=== PATIENT | female | born 1950 | race Caucasian/White ===

== ENCOUNTER 2020-08-12 06:29 | Observation (INO) ==
--- NOTE | 2020-07-17 07:56 | ANES ---
Anesthesia Pre Procedure Eval HOME MEDICATIONS carbidopa ER 36.25 mg-levodopa 145 mg capsule,extended release 3 cap PO QID cap 05/29/20 [Last Taken Unknown] cholecalciferol (vitamin D3) 125 mcg (5,000 unit) capsule 5,000 unit PO DAILY cap 05/29/20 [Last Taken Unknown] lactobacillus combination no.8 3 billion cell capsule 3,000 mmu cells PO DAILY 05/29/20 [Last Taken Unknown] polyethylene glycol 3350 17 gram/dose oral powder 17 g PO DAILY 05/29/20 [Last Taken Unknown] Allergies/Adverse Reactions: Allergies Allergy/AdvReac Type Severity Reaction Status Date / Time clonazepam AdvReac Intermediate drowsy Verified 07/11/20 08:57 codeine AdvReac Intermediate Nausea Verified 07/11/20 08:57 ibuprofen AdvReac Intermediate nausea/vomi Verified 07/11/20 08:57 ting metoclopramide AdvReac Intermediate drowsy Verified 07/11/20 08:57 - Planned Procedure Planned Procedure: Left Arthroplasty Total Knee, Revision Medication List Reviewed:: Yes Allergies Verified: Yes Medical History (Last Reviewed 07/11/20 @ 08:56 by Estrellita Valdovinos LPN) Parkinson disease Onset Date: Unknown Surgical History (Last Reviewed 07/11/20 @ 08:56 by Estrellita Valdovinos LPN) H/O dilation and curettage Onset Date: ~07/2019 H/O partial mastectomy Onset Date: ~2015 left breast H/O: hysterectomy Onset Date: ~07/2019 History of back surgery Onset Date: ~1986 History of partial knee replacement Onset Date: ~03/29/12 left knee: [facility], right knee 2012 @ [facility] Family History (Last Reviewed 07/11/20 @ 08:56 by Estrellita Valdovinos LPN) Father Diabetes Parkinson disease Alcohol abuse Mother Colon cancer - Family Anesthesia History Family History:: no untoward family reactions to anesthesia, no familial bleeding tendencies, no family history of clotting disorders, no family history of premature - Respiratory Smoking Status: Never smoker Discussed smoking cessation including day of surgery: No Sleep Apnea currently treated: No Sleep Apnea by current assessment: No Discussed Risks/Treatment of RODY: No - Cardiovascular Tolerate Activity: Fair - Anesthesia Assessment and Plan ASA Class: PS, III Anesthesia Type Plan: Block - Left ultrasound guided adductor canal nerve block for postop analgesia, Spinal
[~2020-08-12 06:29] MED LIST: MORPHINE SULFATE 15 MG TABLET.SA PO PRN; ROPIVACAINE/CLONIDIN/KETOROLAC 50 ML SYRINGE IJ PRN; TRANEXAMIC ACID 1,000 MG in NORMAL SALINE 100 ML IV PRN; ceFAZolin SODIUM 1 GM VIAL IV PRN
[2020-08-12] MEDS ORDERED: LIDOCAINE HCL 20 ML VIAL ONE (06:52)
[2020-08-12] MEDS ORDERED: NORMAL SALINE 20 ML VIAL ONE (06:52)
[2020-08-12] MEDS ORDERED: BUPIVACAINE HCL/EPINEPHRINE 50 ML VIAL IJ ONE (06:52)
[2020-08-12] MEDS ORDERED: PROPOFOL VIAL IV ONE (06:52)
[2020-08-12] MEDS ORDERED: MIDAZOLAM HCL/PF 5 MG/ML VIAL ONE (06:52)
[2020-08-12] MEDS ORDERED: BUPIVACAINE HCL/PF 10 ML VIAL ONE (06:52)
[2020-08-12] MEDS: RINGER'S SOLUTION,LACTATED 1,000 ML IV PRN ×2 (07:10→08:40)
[2020-08-12] MEDS ORDERED: ROPIVACAINE/CLONIDIN/KETOROLAC 50 ML SYRINGE IJ ONE (07:15)
[2020-08-12] MEDS ORDERED: ceFAZolin SODIUM 1 GM VIAL ONE (07:15)
[2020-08-12] MEDS ORDERED: DEXTROSE 5%-LACTATED RINGERS 1,000 ML IV PRN (09:52)
[2020-08-12] MEDS ORDERED: diphenhydrAMINE HCL 50 MG/ML VIAL IV PRN (09:52)
[2020-08-12] MEDS ORDERED: ZOLPIDEM TARTRATE 5 MG TABLET PO PRN (09:52)
[2020-08-12] MEDS ORDERED: ACETAMINOPHEN 500 MG TABLET PO PRN (09:52)
[2020-08-12] MEDS ORDERED: MAG HYDROX/ALUMINUM HYD/SIMETH 30 ML UDC PO PRN (09:52)
[2020-08-12] MEDS ORDERED: MAGNESIUM HYDROXIDE 30 ML UDC PO PRN (09:52)
--- NOTE | 2020-08-12 09:52 | OR ---
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 Procedure: Revision left total knee arthroplasty. Revision of scar left knee 15 cm Surgeon: Caden Handy M.D. Buttermaker: Kuldeep Marie PA-C (provided and essential set of skilled, educated hands that assisted with transfer, positioning, prepping, draping, manipulation, retraction, placement of jigs, injection, insertion of implants, irrigation, closure wounds, and dressings all of which could not be performed by the available surgical crew) Anesthesia: Spinal with regional block and local periarticular joint injection. Complications: None Specimens: Bone. Implants for disposal, tissue to pathology for acute inflammation, culture x1 Estimated blood loss: Minimal. Tourniquet time: 90 Minutes at 300 millimeters of mercury. Retained implants: Depuy Attune size 3 left lugged cemented posterior stabilized femoral component. Size 3 fixed-bearing cemented tibial platform. 3 by 10 millimeter posterior stabilized cross-linked tibial insert. 38 millimeter medialized patella button. Indications: Mrs. Vivar is a 70-year-old female who in the past underwent a left knee medial compartment uniarthroplasty. She had progression of her arthrosis and pain. This patient was followed in my clinic for period of time with significant complaints of left knee pain consistent with arthritic changes. She had failed conservative measures including, but not limited to, activity modification, passage of time, medications, and other conservative measures. Patient wished to proceed with surgical treatment. The risks, benefits, and alternatives were discussed in clinic. The risks of , blood clots, bleeding, infection, nerve/tendon blood vessel/ injury, malposition of components, intraoperative fracture, postoperative limited range of motion, persistent pain, failure of components, and need for additional procedures. Patient wished to proceed consent was obtained after answering all questions. Procedure: After marking the correct extremity on the floor, the patient was taken to the operating room. A timeout was performed. IV antibiotics consisting of Ancef were administered prior to the procedure. A regional followed by spinal anesthetic was induced by anesthesia, per my request, on the operative table with all bony prominences well-padded. Orosco catheter was placed, and a bump was placed under the operative side buttock. SCDs and PERCY hose were utilized on the nonoperative leg. A well-padded tourniquet was applied to the operative thigh. The operative leg was then pre-scrubbed with alcohol, prepped, and draped in a standard sterile fashion. After exsanguinating the extremity with an Esmarch bandage, the tourniquet was inflated. After marking out the prior anterior knee for standard incision centered over the patella, the skin was incised and the prior scar was excised over a distance of 15 cm and dissected down to the joint retinaculum. There were no retained nonabsorbable sutures encountered. The joint retinaculum was marked out as well as the horizontal axis of the patella, and a standard medial parapatellar arthrotomy was then made. The most proximal aspect of the quadriceps tendon and the patella tendon insertion were protected from release. A partial synovectomy was performed as well as a resection of the infrapatellar fat pad. The distal femoral fat pad proximal to the trochlea was also resected using cautery. The soft tissues were elevated off the medial aspect of the proximal tibia using a [place] elevator ensuring that we did not transect the medial collateral ligament. The prior unicompartment knee implants were in place with no sign of failure. Using osteotomes the tibial insert was removed. Her range of motion was approximately 0 degrees to 130 degrees of flexion. There were signs of advanced arthrosis in the patellofemoral and lateral joint spaces. There were large marginal osteophytes which were removed with a rongeur. The knee was hyperflexed and the patella was tucked laterally. Protecting the surrounding soft tissues with Homans, an entry drill was placed down the femoral canal using Whitesides line for guidance into the entry point. This was done with the prior implants in place. The intramedullary femoral alignment stella was utilized in order to provide intramedullary alignment. We then used the osteotomes in order to remove the femoral and tibial components which came out with relative ease and no excessive loss of bone. There showed no gross signs of infection. Tissue from the knee was then sent to pathology for acute inflammation which returned with less than 2 neutrophils per high-powered field. Next, we cut the distal femur in 5 degrees of valgus resecting 10 millimeters of bone. Next the distal femur was sized to a size 3. A posterior referencing guide was utilized to place the distal femoral cutting block in 3 degrees of external rotation. This was pinned into place. The rotation was confirmed both visually and based on anatomic landmarks. The 4 in 1 cutting jig of the appropriate size was utilized in order to make all bony cuts. The ierne wing was used to ensure no notching. Retractors were utilized in order to protect surrounding soft tissues. This cut did not result in any excessive notching. We then cut the box centered over the distal femur. This allowed for resection of the anterior and posterior cruciate ligaments. I then turned my attention to the preparation of the tibia. Using an extra medullary tibial alignment stella, 1 millimeters of bone was resected off the previous implant surface for a cleanup cut. This was made perpendicular to the mechanical axis of the joint with the alignment stella centered over the ankle mortise. The alignment stella was checked and was noted to be parallel to the mechanical axis, centered over the medial one third of the tibial tubercle, paralleling the anterior surface of the tibia. We then turned our attention to the remaining meniscus and soft tissues. These were removed while protecting the surrounding ligaments and soft tissues. The marginal osteophytes off the anterior, posterior, medial, lateral aspects of the femur and tibia were removed. The tibia was sized out to a size 3. Next the tibia was drilled and punched in an externally rotated position. Next the trial femur and a series of tibial inserts were utilized in order to allow for full extension and maximal flexion. It was found that a 10 millimeter insert gave the best range of motion and stability at multiple flexion points as well as at full extension there was less than 2 mm of gapping both medially and laterally. There is minimal anterior translation with the knee at 90 degrees of flexion and no signs of being able to dislocate the knee. The patella was then prepared. The initial thickness was 21 millimeters. This was reamed down to 12 millimeters parallel to the anterior surface of the patella. It was sized out to a size 38 medialized patella button. This was then drilled and trialed. Without any medial restraint the patella tracked appropriately and did not sublux or dislocate. At this point, it was felt these were the appropriate sized implants, and all trials were removed. The standard periarticular joint injection consisting of ropivacaine, Toradol, and epinephrine were injected into the periarticular joint tissues. The bony surfaces were thoroughly irrigated with a pulsatile-suction saline irrigation device. A bone plug from the prior resected anterior chamfer cut was placed into the drill hole at the distal femur. The bony surfaces were then dried in preparation for placement of the implants. The cement was vacuum mixed per the cutter and paster press clippings's instructions. The cement was placed on the dry bony surfaces and posterior aspect of the implants. The implants were impacted into place, removing all extruded cement. At this point anesthesia administered tranexamic acid per protocol intravenously. The knee was placed in extension with axial loading with the trial insert while the cement cured. Once the cement cured, all remaining extruded cement was removed. The knee was placed through a range of motion with the trial insert to ensure appropriate range of motion and stability. Final range of motion was approximately 0 to 130 degrees. The knee was again thoroughly irrigated with pulsatile saline lavage. The final polyethylene insert was then impacted into place ensuring no retained soft tissues. Cultures were obtained in the knee at this time. A medium Hemovac drain was placed exiting superior laterally. The knee was then placed over a triangle and the arthrotomy was closed with interrupted #1 Vicryl after thoroughly irrigating the joint. The deep and subcutaneous tissues were closed with interrupted 0 and 3-0 Vicryl respectively. Skin was closed with a running subcutaneous 3-0 Monocryl and Prineo Dermabond dressing. 4 x 4's, Sof-Rol, and a full leg Amarjit wrap were applied. All sponge, needle, blade, and instrument counts were correct prior to closing the wounds. Postoperative condition: The patient was awoken and transferred to the postanesthesia care unit in stable condition. Plan is to be admitted to the inpatient medical/surgical floor postoperatively for 24 hours of IV antibiotics, physical therapy, occupational therapy, and medical comanagement. Patient will be weightbearing as tolerated with range of motion as tolerated. DVT prophy laxis will be with SCDs, PERCY hose, and pharmacological anticoagulation. Anticipated hospital stay is approximately 1-3 days.
--- NOTE | 2020-08-12 10:25 | ANES ---
Post Anesthesia Discharge - Transfer of Care Transfer of Care handoff given to nurse: Yes - Discharge from PACU Discharge from PACU when meets criteria: Yes
--- NOTE | 2020-08-12 10:28 | ANES ---
Anesthesia Procedure Note Procedure Note: ANESTHESIA PROCEDURE NOTE Date of procedure: 08/12/2020. Time of procedure: 12 08. Performed by: James Livingston CRNA Clearing Hand: Tess Luna RN . Preprocedure diagnosis: Left knee DJD. Post procedure diagnosis: Same. Procedure: Ultrasound-guided left adductor canal block Indications: Postoperative analgesia. Findings: Patient brought to operating room room #4, sedated, and given a spinal anesthetic. The patient's left inner thigh was prepped with ChloraPrep. Ultrasound utilized to identify the saphenous nerve in the left adductor canal. A 20-gauge 4 inch regional block needle was advanced under ultrasound guidance till tip of needle was placed just proximally to the saphenous nerve. 23 mL of 0.25% Marcaine with epinephrine 1-200,000 was injected with adequate spread of local anesthesia noted a around the nerve. Regional block needle was removed intact. EBL: Minimal. Fluids: N/A. Specimen: N/A. Post procedure condition: The patient tolerated the procedure well. No complications were noted. Thank you for this consultation James Livingston CRNA
--- NOTE | 2020-08-12 11:09 | ANES ---
Post Anesthesia Assessment - Vital Signs Vitals: Last Vital Signs Temp 36.7 C 08/12/20 10:35 Pulse 81 08/12/20 10:35 Resp 16 08/12/20 10:35 BP 98/49 08/12/20 10:35 Pulse Ox 100 08/12/20 10:35 Airway Patency: Normal - Mental Status Level Of Consciousness: Awake - Pain Level Pain Score: 0 - N/V Assessment Nausea/Vomiting Presence: None Dehydration:: No
[2020-08-12] MEDS: ceFAZolin SODIUM 1 GM in DEXTROSE 5 % IN WATER 100 ML IV SCH ×6 (11:34→23:36)
[2020-08-12] MEDS: KETOROLAC TROMETHAMINE 15 MG/ML VIAL IV SCH ×3 (11:37→23:30)
[2020-08-12] MEDS: Carbidopa/Levodopa [Rytary Er 36.25 Mg-145 Mg Cap] PO SCH ×3 (12:50→21:17)
[2020-08-12] MEDS: oxyCODONE HCL/ACETAMINOPHEN 1 TAB TABLET PO PRN (14:52)
[2020-08-12] MEDS: ONDANSETRON HCL/PF 2 MG/ML VIAL IV PRN (17:02)
[2020-08-12] MEDS ORDERED: SENNOSIDES/DOCUSATE SODIUM 1 TAB TABLET PO SCH (21:00)
[2020-08-13] MEDS: KETOROLAC TROMETHAMINE 15 MG/ML VIAL IV SCH ×2 (05:41→10:17)
[2020-08-13] MEDS: oxyCODONE HCL/ACETAMINOPHEN 1 TAB TABLET PO PRN ×3 (05:41→15:25)
[2020-08-13 06:18] LABS: Hematocrit 31.6 % (37.0-47.0); Hemoglobin 10.4 gm/dL (12.5-16.0); Mean Cell Volume 96.9 fl (78-100); Mean Corpuscular Hemoglobin 31.9 pg (27-31); Mean Corpuscular Hgb Conc 32.9 g/dl (32-36); Mean Platelet Volume 10.3 fl (8-12.5); Platelet Count 97 K/mm3 (150-450); Red Blood Count 3.26 M/mm3 (4.2-5.4); Red Cell Distribution Width 12.2 % (11.5-14.0); White Blood Count 5.3 K/mm3 (4.0-10.5)
[2020-08-13 06:27] LABS: Anion Gap 8.6 mmol/L (6.8-13.8); BUN/Creatinine Ratio 26.1 (9.0-21.6); Calcium * 8.3 mg/dL (7.9-10.9); Estimated Creat Clear 85.9; Potassium 3.6 mmol/L (3.4-4.6)
[2020-08-13] MEDS: Carbidopa/Levodopa [Rytary Er 36.25 Mg-145 Mg Cap] PO SCH ×2 (08:01→12:43)
[2020-08-13] MEDS ORDERED: ENOXAPARIN SODIUM 40 MG/0.4 ML SYRG SC SCH (08:52)
[2020-08-13] MEDS ORDERED: POLYETHYLENE GLYCOL 3350 119 GM BTL PO SCH (09:00)
[2020-08-13] MEDS ORDERED: CHOLECALCIFEROL 5,000 UNIT TABLET PO SCH (09:00)
[2020-08-13] MEDS ORDERED: POLYETHYLENE GLYCOL 3350 17 GM PACKET PO SCH (09:00)
[2020-08-13] MEDS ORDERED: LACTOBACILLUS ACIDOPHILUS 1 EACH CAPSULE PO SCH (09:00)
[2020-08-13] MEDS: ONDANSETRON HCL/PF 2 MG/ML VIAL IV PRN (12:40)
--- NOTE | 2020-08-13 16:14 | DS ---
(1) Status post revision of total replacement of left knee Problem: Acute (2) Parkinson disease Problem: Chronic Date of Discharge:: 08/13/20 Hospital Course: Mrs. Vivar was admitted to the floor after undergoing revision left total knee arthroplasty. Tolerated this well. Was admitted to the floor postoperatively for 24 hours of IV antibiotics, pain control, medical comanagement, and occupational and physical therapy. OT and PT were consulted to assist with activities of daily living and ambulation. Was made weightbearing as tolerated with range of motion as tolerated. Pain was initially controlled with IV regimen. This was transitioned to oral once tolerating a by mouth intake. Was resumed on home diet and medications. A Orosco catheter was inserted in the operating room which was discontinued by postoperative day 1. A drain was pl aced intraoperatively into the knee which was discontinued on postoperative day 1. Lovenox, SCDs, and PERCY hose were utilized for DVT prophylaxis. Vital signs remained stable to the hospital course. Labs were obtained which showed a final hemoglobin of 10.4 grams. BMP was reviewed and was stable. Physical examination throughout the hospital course showed an extremity that had sensation that was intact to light touch, palpable pulses, a benign wound, motor intact to the toes, ankle, and knee. Knee range of motion was approximately 5 degrees to 50 degrees. Once an oral pain regimen was tolerated and physical therapy goals were met, it was felt that they were stable for discharge to home. Instructions: Continue with weightbearing as tolerated and range of motion as tolerated. It is okay to shower and get the wound wet as long as there is no drainage from the wound. Do not bathe or soak the wound. If there is any drainage from the wound keep the wound clean and dry and cover with dry gauze and tape. Change every 2- 3 days as needed if there is any drainage. Cover wound while showering if there is any drainage. Continue with physical therapy. Resume home diet. Report any fever over 101.5 Fahrenheit, uncontrolled pain, increased drainage, foul odor of drainage, new or increased calf pain or shortness of breath, or any other significant complaints. A 325mg daily aspirin will be started after finishing anticoagulation if not allergic. Continue with PERCY hose on the operative extremity until instructed otherwise. No driving until instructed otherwise. Follow up in approximately 2-3 weeks. Procedures Performed: see notes below List Procedures: left revision total knee arthroplasty Results and Findings: Pending Mircobiology Results 08/12/20 09:00 Knee - Left Surgical Culture - Preliminary No Growth Lab Pending Results 08/13/20 06:00: WBC 5.3, RBC 3.26 L, Hgb 10.4 L, Hct 31.6 L, MCV 96.9, MCH 31.9 H, MCHC 32.9, RDW 12.2, Plt Count 97 L, MPV 10.3 08/13/20 06:00: Sodium 140, Plasma Sodium 140, Potassium 3.6, Chloride 106, Carbon Dioxide 29.0, Anion Gap 8.6, BUN 12, Creatinine 0.46, Est GFR (Non-Af Amer) 143 H D, BUN/Creatinine Ratio 26.1 H, Random Glucose 108, Calcium 8.3 Disposition: Home self-care Condition: Good Discharge Activity: Activity as tolerated, Weight bearing Discharge Diet: General/regular food Referrals: Bola Thomas MD [Primary Care Provider] - Additional Patient Instructions (free text): Physical Therapy at [facility] on WednesdayAugust 14 at 12:30pm. Follow up [facility] Orthopedic office appointment on WednesdayAugust 27 at 9:30am. Prescriptions (Any new or edited meds): Enoxaparin Sodium [Lovenox] 40 mg SC Q24H #7 disp.syrin Transmission Status: Pending to [facility] #[id number] oxyCODONE HCL/ACETAMINOPHEN [Percocet 5 MG/325 MG] 1 - 2 tab PO Q4H PRN #50 tab PRN Reason: Moderate Pain (Pain Scale 4-6) Transmission Status: Received by [facility] #[id number] Sennosides/Docusate Sodium [Senokot-S] 2 tab PO HS #60 tab Transmission Status: Pending to [facility] #[id number] Ondansetron HCl [Zofran] 4 mg PO Q8H PRN #30 tab PRN Reason: Nausea Transmission Status: Pending to [facility] #[id number] Complete Home Medications List: Complete Home Medication List: carbidopa ER 36.25 mg-levodopa 145 mg capsule,extended release 3 cap PO QID cap 05/29/20 cholecalciferol (vitamin D3) 125 mcg (5,000 unit) capsule 5,000 unit PO DAILY cap 05/29/20 lactobacillus combination no.8 3 billion cell capsule 3,000 mmu cells PO DAILY 05/29/20 polyethylene glycol 3350 17 gram/dose oral powder 17 g PO DAILY 05/29/20 Enoxaparin Sodium [Lovenox] 40 mg SC Q24H #7 disp.syrin 08/13/20 Ondansetron HCl [Zofran] 4 mg PO Q8H PRN #30 tab 08/13/20 Sennosides/Docusate Sodium [Senokot-S] 2 tab PO HS #60 tab 08/13/20 oxyCODONE HCL/ACETAMINOPHEN [Percocet 5 MG/325 MG] 1 - 2 tab PO Q4H PRN #50 tab 08/13/20 Amb Orders for Discharge: PT Evaluation and Treatment* Facility: [facility], Location: Rehabilitation Services Forms: Patient Portal Registration
[2020-08-13 17:38] VITALS: BP 130/65
== END 2020-08-13 16:43 | disposition home or self-care (01) ==
LOC: SUR 06:29 → MS 06:29
PROVIDERS: ADMIT Orthopaedic Surgery; ATTEND Orthopaedic Surgery
DX: M17.12 Unilateral primary osteoarthritis, left knee; D64.9 Anemia, unspecified; G20 Parkinson's disease; Z96.652 Presence of left artificial knee joint